=== PATIENT | male | born 1940 | race Two or more races ===

== ENCOUNTER 2017-04-21 11:14 | Emergency (ER) | payer OTHER ==
[~2017-04-21] VITALS: Ht 180.3 cm; Wt 77.1 kg
[~2017-04-21 11:14] MED LIST: ACET500; ATRO1SO RIGHTEYE; Aspirin PO; Bactrim Ds Tab1 EACH PO; CENTRUM SILVER1 EAC4 PO; CEPH500 PO; CLIN300 PO; Colace100 MG PO; DIPATR PO; ERYT.5TO RIGHTEYE; EXELON1 EACH TOP; FOLI1 PO; FURO20 PO; HYDACE10B PO; HYDACE5 PO; HYDACE5325 PO; HYDR1TAB94 PO; Hair, Skin & N1 EACH PO; Hydrocodone-Ap1 EA23 PO; IBUP600 PO; IBUP800 PO; KETO10 PO; LANS30EC PO; LANSOPRAZOLE30 MG PO; LORA1 PO; META800 PO; MULVITA; MUPI2TC TOP; NAPR500 PO; NAPR550 PO; NAPROXEN PO; Naprosyn500 MG PO; Norco 5-325 Ta1 EACH PO; OFLO.3OPSO RIGHTEYE; OTC SINUS MEDS; OXYACE5T PO; OXYC10TA19 PO; OXYC5; Omeprazole20 M1 PO; PROM25 PO; Percocet 5-3251 EACH PO; Potassium Chlo10 ME1 PO; Pred Forte1 ML RIGHTEYE; Prilosec Otc20 MG PO; RIVASTIGMINE1 EACH TD; RXHYD5325 PO; RXTRAM50 PO; SULTRIDS PO; TAMS.4ER PO; THIA100 PO; TRAM50; TRAM50 PO; TRIA80TC TOP; Tylenol325 MG PO; VANCOMYCIN1.25 GM/25 IV; [UNRECOGNIZED DRUG - OTHER] PO
[2017-04-21 13:02] LABS: BASOPHILS ABSOLUTE AUTO 0.02 K/mm3 (0.00-0.23); BASOPHILS PERCENT AUTO 0 % (0-2); EOSINOPHILS ABSOLUTE AUTO 0.09 K/mm3 (0.00-0.68); EOSINOPHILS PERCENT AUTO 1 % (0-6); Hematocrit 34.3 % (37.0-53.0); Hemoglobin 11.7 g/dL (13.5-17.5); IMMATURE GRAN ABSOLUTE AUTO 0.02 K/mm3 (0.00-0.10); IMMATURE GRAN PERCENT AUTO 0 % (0-1); LYMPHOCYTES ABSOLUTE AUTO 1.27 K/mm3 (0.84-5.20); LYMPHOCYTES PERCENT AUTO 17 % (21-46); MONOCYTES PERCENT AUTO 7 % (4-13); Mean Corpuscular HGB 30.9 pg (26.0-34.0); Mean Corpuscular HGB Conc 34.1 g/dL (31.5-36.5); Mean Corpuscular Volume 91 fL (80-100); Mean Platelet Volume 10.7 fL (9.1-12.4); NEUTROPHILS ABSOLUTE AUTO 5.52 K/mm3 (1.96-9.15); NEUTROPHILS PERCENT AUTO 74 % (41-73); Platelet Count 232 K/mm3 (150-400); RDW Coefficient Variation 13.4 % (11.7-14.2); RDW Standard Deviation 44.2 fL (35.1-46.3); Red Blood Cell Count 3.79 M/mm3 (4.30-5.90); White Blood Cell Count 7.42 K/mm3 (4.00-11.30)
[2017-04-21 13:06] LABS: Alanine Aminotransfer (ALT/SGP 16 U/L (12-78); Albumin, Blood 3.4 g/dL (3.4-5.0); Albumin/Globulin Ratio 0.9 (0.8-1.8); Alk Phos 140 U/L (50-136); Anion Gap 6 mmol/L (6-16); Aspartate Aminotrans (AST/SGOT 41 U/L (12-37); Bilirubin, Total 0.6 mg/dL (0.1-1.0); Blood Urea Nitrogen 24 mg/dL (8-24); Bun/Creatinine Ratio 27.1 (12.0-20.0); CO2, Blood 25 mmol/L (21-32); Calcium, Blood 8.4 mg/dL (8.5-10.1); Chloride, Blood 109 mmol/L (98-108); Creatinine, Blood 0.89 mg/dL (0.60-1.20); Globulin, Blood 3.6 g/dL (2.2-4.0); Glomerular Filtration Rate >60 (60-); Glucose, Blood 117 mg/dL (70-99); Potassium, Blood 3.9 mmol/L (3.5-5.5); Sodium, Blood 140 mmol/L (136-145)
[2017-04-21 16:12] LABS: Prostate Specific Antigen 0.743 ng/mL (0.000-4.000)
[2017-04-21] MEDS ORDERED: EXELON1 EACH TD (16:29)
[2017-04-21] MEDS ORDERED: WAL-ZAN 150150 MG PO (16:29)
[2017-04-21] MEDS ORDERED: LANS30EC PO (16:30)
[2017-04-21] MEDS ORDERED: CIPR500 PO (16:30)
[2017-04-21 17:42] LABS: Alpha Feto Protein, Tumor Mkr 1.9 ng/mL (0.0-8.0); Cancer Antigen 19-9 6.6 U/mL (2.0-37.0); Carcinoembryonic Antigen 2.1 ng/mL (0.0-3.0)
[2017-04-23 05:30] LABS: Hepatitis C Antibody Reactive (NR)
== END 2017-04-21 16:31 | disposition home or self-care (01) ==
LOC: ER 11:14
PROVIDERS: Physician Assistant
DX: R16.0 Hepatomegaly, not elsewhere classified (principal); M89.9 Disorder of bone, unspecified; Z79.899 Other long term (current) drug therapy; Z79.52 Long term (current) use of systemic steroids; Z96.651 Presence of right artificial knee joint
CPT/HCPCS: 74177; 76705; 80053; 82105; 82378; 83690; 84153; 85025; 86301; 86704; 86705; 86708; 86709; 86803; 87340; 93005; 93010; 99284; Q9967

== ENCOUNTER 2017-05-21 10:01 | Day surgery (SDC) | payer OTHER ==
[2017-05-20 15:07] LABS: International Normalized Ratio 1.02; Prothrombin Time Results 10.6 Sec (9.7-11.5)
[~2017-05-21 10:01] MED LIST changes: +CIPR500 PO; +EXELON1 EACH TD; +WAL-ZAN 150150 MG PO
[2017-05-22] MEDS ORDERED: Solaraze100 GM (10:09)
[2017-05-22] MEDS ORDERED: FAMO20 PO (10:10)
[2017-05-22] MEDS ORDERED: SINEMET 25/100 PO (10:14)
== END 2017-05-21 22:56 | disposition home or self-care (01) ==
LOC: CT 10:01
PROVIDERS: Physician Assistant; Radiology Diagnostic Radiology
PROC: 0FB03ZX Excision of Liver, Percutaneous Approach, Diagnostic (ICD-10-PCS; principal; 2017-05-21 15:00)
DX: C22.0 Liver cell carcinoma (principal); K76.9 Liver disease, unspecified; B18.2 Chronic viral hepatitis C
CPT/HCPCS: 36415; 47000; 77012; 85610; 85730; 88307; 88313; 88342

== ENCOUNTER 2017-05-22 09:15 | Day surgery (SDC) | payer OTHER ==
[~2017-05-22] VITALS: Ht 180.3 cm; Wt 70.9 kg
[2017-05-22] MEDS ORDERED: Solaraze100 GM (10:09)
[2017-05-22] MEDS ORDERED: FAMO20 PO (10:10)
[2017-05-22] MEDS ORDERED: SINEMET 25/100 PO (10:14)
== END 2017-05-22 11:52 | disposition home or self-care (01) ==
LOC: ORSCSDS 09:15
PROVIDERS: Internal Medicine Gastroenterology
PROC: 0D758ZZ Dilation of Esophagus, Via Natural or Artificial Opening Endoscopic (ICD-10-PCS; principal; 2017-05-22 11:15)
DX: R13.10 Dysphagia, unspecified (principal); K44.9 Diaphragmatic hernia without obstruction or gangrene; B19.20 Unspecified viral hepatitis C without hepatic coma; B19.10 Unspecified viral hepatitis B without hepatic coma; J45.909 Unspecified asthma, uncomplicated; Z79.899 Other long term (current) drug therapy
CPT/HCPCS: J7120

== ENCOUNTER 2017-05-27 12:10 | Emergency (ER) | payer OTHER ==
[~2017-05-27] VITALS: Ht 180.3 cm; Wt 74.8 kg
[~2017-05-27 12:10] MED LIST changes: +FAMO20 PO; +SINEMET 25/100 PO; +Solaraze100 GM
[2017-05-27 15:00] LABS: Calcium, Ionized (POC) 1.03 mmol/L (1.10-1.46); Chloride (POC) 106 mmol/L (98-108); Creatinine (POC) 1.4 mg/dL (0.8-1.3); Glucose (ISTAT POC) 90 mg/dL (70-99); Hemoglobin (POC) 8.5 g/dL (13.5-17.5); Potassium (POC) 4.1 mmol/L (3.5-5.5); Sodium (POC) 138 mmol/L (135-148); Total CO2 (POC) 20 mmol/L (21-32)
== END 2017-05-27 15:44 | disposition home or self-care (01) ==
LOC: ER 12:10
PROVIDERS: Internal Medicine
DX: R10.11 Right upper quadrant pain (principal); K91.840 Postprocedural hemorrhage of a digestive system organ or structure following a digestive system procedure; Z79.899 Other long term (current) drug therapy; Z79.2 Long term (current) use of antibiotics
CPT/HCPCS: 76705; 80047; 85014; 99284

== ENCOUNTER 2017-06-04 15:25 | Emergency (ER) | payer OTHER ==
[~2017-06-04] VITALS: Ht 167.6 cm; Wt 63.5 kg
== END 2017-06-04 17:53 | disposition home or self-care (01) ==
LOC: ER 15:25
DX: S01.112A Laceration without foreign body of left eyelid and periocular area, initial encounter (principal); Z79.899 Other long term (current) drug therapy; Z79.2 Long term (current) use of antibiotics; W05.0XXA Fall from non-moving wheelchair, initial encounter
CPT/HCPCS: 12014; 99283